=== PATIENT | female | born 1965 | race Caucasian/White ===

== ENCOUNTER → 2020-02-08 08:59 | Outpatient (BNVA) | payer OTHER, SELFPAY | PROVIDERS: PCP Internal Medicine; Referring Provider Internal Medicine; Visit Provider Orthopaedic Surgery | DX: M75.41 Impingement syndrome of right shoulder (principal) | CPT/HCPCS: 20610; 99212; J1100 ==

== ENCOUNTER 2020-02-19 11:55 | Outpatient (REF) | payer OTHER, SELFPAY ==
--- NOTE | 2020-02-19 11:57 | MR_ITS ---
EXAMINATION: MR SHOULDER WITHOUT CONTRAST, RIGHT CLINICAL INFORMATION: Impingement syndrome of right shoulder. Patient reports constant right shoulder pain, ? injured carrying grocery bags, PT of no help. COMPARISON: XR right shoulder 11/21/2019. TECHNIQUE: MRI of the shoulder without contrast was performed on a high-field scanner. FINDINGS: ROTATOR CUFF: There is distal supraspinatus tendinosis with minor fraying of the bursal surface. No discrete tear is identified. The infraspinatus, teres minor, and subscapularis tendons are intact. There is trace edema/fluid in the subacromial-subdeltoid bursa. No muscle atrophy or fatty infiltration. BICEPS: Normal. CORACOACROMIAL ARCH: The undersurface of the acromion is slightly curved with no subacromial spur. There is rspw-fa-rgkpwtdc osteoarthritis of the acromioclavicular joint. This includes moderate bone marrow edema in the distal clavicle. LABRUM/CAPSULE: Normal. GLENOHUMERAL JOINT/MARROW: The cartilage appears intact. There is mild spurring and patchy bone marrow edema involving the greater tuberosity. MR/MR shoulder RT wo con IMPRESSION: 1. Distal supraspinatus tendinosis with mild bursal surface fraying. No discrete tear. 2. Jmzi-yh-bvlplncc osteoarthritis of the acromioclavicular joint.
== END 2020-02-19 11:56 | disposition home or self-care (01) ==
LOC: HO.MRI 11:55
PROVIDERS: PCP Internal Medicine; Visit Provider Orthopaedic Surgery
DX: M75.41 Impingement syndrome of right shoulder (principal)
CPT/HCPCS: 73221

== ENCOUNTER → 2020-02-21 10:22 | Outpatient (BNVA) | payer OTHER, SELFPAY | PROVIDERS: PCP Internal Medicine; Referring Provider Internal Medicine; Visit Provider Orthopaedic Surgery | DX: M75.41 Impingement syndrome of right shoulder (principal); M19.011 Primary osteoarthritis, right shoulder | CPT/HCPCS: 99212 ==

== ENCOUNTER 2020-11-19 14:46 | Outpatient (REF) | payer OTHER, SELFPAY | END 2020-11-19 14:47 | disposition home or self-care (01) | LOC: HO.LAB 14:46 | PROVIDERS: Visit Provider Nurse Practitioner Family | DX: R30.0 Dysuria (principal) | CPT/HCPCS: 87086 ==

== ENCOUNTER 2020-12-10 | Outpatient (REF) | payer OTHER, SELFPAY ==
[2020-12-12 19:36] LABS: HPV mRNA E6/E7 rflx Not Detected (Not Detected)
== END 2020-12-10 00:01 | disposition home or self-care (01) ==
LOC: HO.LNP
PROVIDERS: Visit Provider Internal Medicine
DX: Z12.4 Encounter for screening for malignant neoplasm of cervix (principal); Z11.51 Encounter for screening for human papillomavirus (HPV)
CPT/HCPCS: 87624; 88142

== ENCOUNTER 2021-02-21 07:54 | Outpatient (REF) | payer OTHER, SELFPAY ==
[2021-02-21 11:17] LABS: Alanine Aminotransferase 24 U/L (0-31); Anion Gap 13 (12-20); Aspartate Amino Transferase 22 U/L (5-31); Blood Urea Nitrogen 11 mg/dL (9-16); Calcium 9.5 mg/dL (8.4-10.2); Carbon Dioxide 23 mmol/L (22-29); Chloride 110 mmol/L (96-108); Cholesterol 183 mg/dL; Estimated Glomerular Filt Rate > 60; Glucose Fasting 90 mg/dL (60-99); HDL Cholesterol 57 mg/dL; LDL Cholesterol Calculated 109 mg/dl; Potassium 4.4 mmol/L (3.3-5.1); Sodium 142 mmol/L (135-145); Triglycerides 88 mg/dL
[2021-02-21 11:38] LABS: Vitamin D 25-OH Total 14.9 ng/mL (>30)
== END 2021-02-21 07:55 | disposition home or self-care (01) ==
LOC: HO.HMGCLDS 07:54
PROVIDERS: PCP Internal Medicine; Visit Provider Internal Medicine
DX: Z00.00 Encounter for general adult medical examination without abnormal findings (principal); M19.91 Primary osteoarthritis, unspecified site; I10 Essential (primary) hypertension
CPT/HCPCS: 36415; 80048; 80061; 82306; 84450; 84460

== ENCOUNTER 2022-06-25 13:35 | Outpatient (REF) | payer OTHER, SELFPAY ==
--- NOTE | ~2022-06-25 | XR_ITS ---
EXAMINATION: CR X-RAY HAND AND WRIST LEFT CLINICAL INFORMATION: Left hand and wrist pain. COMPARISON: None TECHNIQUE: 3 views of the left hand and wrist were obtained. FINDINGS: There is no acute fracture or dislocation. The joint spaces are unremarkable. The carpal bones are normally aligned. The distal radius and ulna are intact. XR/XR hand wrist LT IMPRESSION: No acute cardiopulmonary process.
== END 2022-06-25 13:36 | disposition home or self-care (01) ==
LOC: HO.HMGCX 13:35
PROVIDERS: PCP Internal Medicine; Visit Provider Internal Medicine
DX: M19.90 Unspecified osteoarthritis, unspecified site (principal)
CPT/HCPCS: 73110; 73130

== ENCOUNTER → 2022-08-06 09:08 | Outpatient (BNVA) | payer OTHER, SELFPAY | PROVIDERS: PCP Internal Medicine; Visit Provider Physician Assistant | DX: M77.02 Medial epicondylitis, left elbow (principal); M65.4 Radial styloid tenosynovitis [de Quervain]; S69.80XA Other specified injuries of unspecified wrist, hand and finger(s), initial encounter | CPT/HCPCS: 99202 ==

== ENCOUNTER 2022-08-23 14:39 | Outpatient (REF) | payer OTHER, SELFPAY ==
[2022-08-25 23:33] LABS: HPV mRNA E6/E7 rflx Not Detected (Not Detected)
== END 2022-08-23 14:40 | disposition home or self-care (01) ==
LOC: HO.LNP 14:39
PROVIDERS: Visit Provider Internal Medicine
DX: Z01.419 Encounter for gynecological examination (general) (routine) without abnormal findings (principal); Z11.51 Encounter for screening for human papillomavirus (HPV)
CPT/HCPCS: 87624; 88142

== ENCOUNTER 2022-08-25 07:03 | Outpatient (REF) | payer OTHER, SELFPAY ==
[2022-08-25 11:31] LABS: MANUAL DIFF FLAG NO
[2022-08-25 11:41] LABS: Basophils Absolute Auto 0.1 X10*3/uL (0.0-0.2); Basophils Percent Auto 0.8 % (0-2); Eosinophils Absolute Auto 0.5 X10*3/uL (0.0-0.4); Hematocrit 42.3 % (37.0-47.0); Hemoglobin 13.7 g/dl (12.0-16.0); Imm Gran Abs Auto 0.01 X10*3/uL (0.00-0.03); Imm Gran Pct Auto 0.2 % (0.0-0.4); Lymphocytes Absolute Auto 3.2 X10*3/uL (1.2-4.9); Lymphocytes Percent Auto 53.5 % (20-40); Mean Corpuscular HGB Conc 32.4 g/dl (31.0-35.0); Mean Corpuscular Hemoglobin 27.3 pg (27.0-33.0); Mean Corpuscular Volume 84.3 fL (80.0-98.0); Mean Platelet Volume 10.4 fL (9.4-12.3); Monocytes Absolute Auto 0.5 X10*3/uL (0.1-1.2); Monocytes Percent Auto 7.5 % (2-11); Neutrophils Absolute Auto 1.8 x10*3/uL (2.0-8.3); Platelet Count 319 X10*3/uL (160-400); Red Blood Count 5.02 X10*6/uL (4.20-5.50); Red Cell Distribution Width 12.8 % (11.0-16.0)
[2022-08-25 12:28] LABS: Erythrocyte Sedimentation Rate 3 MM/HR (0-20)
[2022-08-25 12:48] LABS: Alanine Aminotransferase 12 U/L (0-31); Anion Gap 10 (12-20); Aspartate Amino Transferase 17 U/L (5-31); Blood Urea Nitrogen 11 mg/dL (9-16); Calcium 9.6 mg/dL (8.4-10.2); Carbon Dioxide 27 mmol/L (22-29); Chloride 110 mmol/L (96-108); Cholesterol 206 mg/dL; Estimated Glomerular Filt Rate > 60; Glucose Fasting 97 mg/dL (60-99); HDL Cholesterol 59 mg/dL; LDL Cholesterol Calculated 126 mg/dl; Potassium 4.2 mmol/L (3.3-5.1); Sodium 143 mmol/L (135-145); Triglycerides 105 mg/dL; Vitamin D 25-OH Total 23.9 ng/mL (>30)
[2022-08-25 18:30] LABS: Rheumatoid Factor < 13.0 IU/mL (<15.0)
[2022-08-27 17:12] LABS: CRP High Sensitivity 0.8 mg/L
[2022-09-01 11:59] LABS: Anti Nuclear Antibody Screen POSITIVE (NEGATIVE); Anti Nuclear Antibody Titer 1:40 titer
== END 2022-08-25 07:04 | disposition home or self-care (01) ==
LOC: HO.HMGCLDS 07:03
PROVIDERS: PCP Internal Medicine; Visit Provider Internal Medicine
DX: Z00.01 Encounter for general adult medical examination with abnormal findings (principal); E55.9 Vitamin D deficiency, unspecified; M19.90 Unspecified osteoarthritis, unspecified site; M25.50 Pain in unspecified joint
CPT/HCPCS: 36415; 80048; 80061; 82306; 84450; 84460; 85025; 85652; 86038; 86039; 86141; 86431

== ENCOUNTER 2022-12-15 08:44 | Outpatient (AMB) | payer OTHER, SELFPAY ==
--- NOTE | 2022-12-15 08:48 | MHC.OFFVIS ---
Intake Vital Signs 12/15/22 08:50 Weight 117 lb 11.629 oz BP 122/86 Blood Pressure Location Lt brachial Position Sitting Pulse 89 Pulse Source Pulse Oximeter Temp 98.1 F Temp Source Skin Pulse Oximetry (%) 99 Oxygen Delivery Method Room Air Intake Visit Reasons: Joint Pain Intake Note: New patient here for joint pain. Would like to discuss positive EVERETTE. 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 She says she has pain all over and has had that for a number of years. For the past 2 years or so she has noted some pain on the ulnar aspect of the left wrist. This seems to be worse with more physical activity. There is also pain in the left medial elbow and she has noted some bony enlargement across the interphalangeal joints. She is having hot flashes at night as she just stopped having her menses. She had chronic right shoulder pain that was helped with decompressive surgery back in 2020. [facility] Medical History (Updated 12/15/22 @ 14:13 by Ko Chi MD) Acromioclavicular joint arthritis EVERETTE positive Polyarthralgia Subacromial impingement of right shoulder Vitamin D deficiency Wrist pain, left Surgical History History of repair of right rotator cuff Surgical history unknown Family History Mother No problems noted. Father No problems noted. 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 She used to do more exercising but has cut that out. Slight weight loss. Negative for appetite change, fever, chills, malaise Eyes Details: Headaches a bit more frequent in recent months. Negative for vision change, dry eyes, and dizziness ENT Details: Negative for hearing change, tinnitus, oral ulcer, nose bleeds and oral dryness. Card Details: Negative chest pain, edema and syncope Resp Details: Negative for SOB, cough and wheezing GI Details: Negative indigestion/heartburn, nausea, abdominal pain, bowel changes, diarrhea, constipation and bloody stool. Details: Negative for dysuria, hematuria, nocturia, decreased force/flow and genital discharge Skin/Breast Details: Some hair thinning but no rashes on the scalp. Negative for itching, rash, hives, Raynaud's symptoms, sun sensitivity, and skin cancer Neuro Details: Negative for epilepsy, palsy, stroke, changes in speech, tingling and weakness Psych Details: Anxiety at times, frequent awakening in the middle of the night. Negative for depressive symptoms currently. Endo Details: Negative for polyuria and polydypsia Ghassan/Lymph Details: Negative for excessive bruising or bleeding. Physical Exam Vital Signs: Last Vital Signs Temp 98.1 F 12/15/22 08:50 Pulse 89 12/15/22 08:50 BP 122/86 12/15/22 08:50 Pulse Ox 99 12/15/22 08:50 Oxygen Delivery Method Room Air 12/15/22 08:50 APPEARANCE: Patient in no acute distress EYES no redness, pupils equal and reactive to light, eyelids normal. No temporal artery tenderness, redness or swelling. EARS: External ear normal, canal clear and tympanic membrane normal. NOSE/SINUS: Airflow through both nares, no nasal discharge, no bleeding THROAT: Oral mucosa moist, no ulcerations NECK: No thyromegaly or masses, no adenopathy, trachea midline. HEART: Regulrar rhythm, S1-S2 heard, no murmurs, rubs or gallops. LUNG: Clear to percussion and auscultation ABD: Normal bowel sounds, no organomegaly, masses or tenderness. EXTREMITIES: No edema, no calf tenderness, normal peripheral pulses. NEURO: Oriented and alert x3. No focal weakness. Reflexes symmetric. Gait normal. SKIN: No inflammatory or neoplastic lesions. Normal color and turgor JOINT EXAM:.?? Cervical Spine: Mild pain with extremes of lateral rotation and lateral flexion. Some cervical muscle tenderness. Thoracic Spine:.? No scoliosis.? No tenderness on palpation. Lumbar Spine:.? Alignment normal.? Mild lumbar pain at the extremes with some paraspinal muscle tenderness. Chest Wall:.? No tenderness, swelling, increased warmth or erythema. Hands:. Right: Normal pain-free range of motion. There is bony enlargement across the thumb IP in all the PIP joints but none of those are tender. There is mild do not bony enlargement at the 2nd and 5th DIP joints with there is some slight tenderness. No soft tissue swelling, triggering, thenar atrophy or sensory loss. Left:? Normal pain-free range of motion with slight bony enlargement without tenderness at the thumb IP and 2nd 3rd PIP joints. The 2nd DIP has some slight nontender bony enlargement. No soft tissue swelling, triggering, thenar atrophy or sensory loss. Wrists:. Right: Normal pain-free range of motion with some minimal dorsal tenderness. No swelling. Left: Mild pain with the extremes of 80 degrees flexion or extension. There is some slight dorsal tenderness but most of the tenderness is on the ulnar aspect. No redness or swelling is appreciated. Elbows: Left: Slight pain over the medial aspect with the extremes of normal range of motion. There is mild medial epicondylar tenderness. There is no swelling or redness in that area. There is no tenderness or swelling over the joint space. Right: Normal pain-free range of motion without tenderness, swelling, increased warmth or erythema. Shoulders:.?? Full range of motion without pain. No tenderness, weakness, swelling, increased warmth or erythema. Hips:.? Full range of motion without pain. Hip bursa:.? No tenderness. Knees:.?? Normal pain-free range of motion without tenderness, swelling, increased warmth or erythema.? There is no effusion or crepitation Ankles:.? Normal pain-free range of motion without tenderness, swelling, increased warmth or erythema. Feet:.? Normal pain-free range of motion without tenderness, swelling, increased warmth or erythema. Tender points: Mild tenderness to digital palpation at the occiput, trapezius, second rib, lateral epicondyle, knees, greater trochanter and gluteal area bilaterally. ? Results Reviewed Results Reviewed: Laboratory Tests 08/25/22 08/25/22 08/25/22 07:16 07:16 07:16 WBC 6.0 Hgb 13.7 Plt Count 319 ESR 3 Creatinine 0.63 AST 17 ALT 12 Laboratory Tests 08/25/22 08/25/22 07:16 07:16 Rheumatoid Factor < 13.0 EVERETTE Titer 1:40 H [facility] [place] [facility] [place] [address] XRay Report Signed Patient: Twyla Guy MR#: [id number] : 1965 :[id number] Age/Sex: 57 / F Date: 06/25/[address]: Emmanuel Alvarez MD Ordering Physician: Emmanuel Alvarez MD Date of Service: 06/25/22 Procedure(s): XR hand wrist LT Accession Number(s): [id number] cc: Emmanuel Alvarez MD~ EXAMINATION: CR X-RAY HAND AND WRIST LEFT CLINICAL INFORMATION: Left hand and wrist pain.? COMPARISON: None? TECHNIQUE: 3 views of the left hand and wrist were obtained.? FINDINGS: There is no acute fracture or dislocation. The joint spaces are unremarkable. The carpal bones are normally aligned. The distal radius and ulna are intact.? XR/XR hand wrist LT IMPRESSION: No acute cardiopulmonary process. ? Dictated By: Bart Dior MD Signed By: <Electronically signed by Bart Dior MD in OV> 06/25/[address] [address] Magnetic Resonance Report Signed Patient: Twyla Guy MR#: [id number] : 1965 Acct:[id number] Age/Sex: 55 / F ADM Date: 02/19/[address]: Og Little MD Ordering Physician: Og Little MD Date of Service: 02/19/20 Procedure(s): MR shoulder RT wo con Accession Number(s): [id number] cc: Og Little MD~ EXAMINATION: MR SHOULDER WITHOUT CONTRAST, RIGHT CLINICAL INFORMATION: Impingement syndrome of right shoulder. Patient reports constant right shoulder pain, ? injured carrying grocery bags, PT of no help. COMPARISON: XR right shoulder 11/21/2019. TECHNIQUE: MRI of the shoulder without contrast was performed on a high-field scanner. FINDINGS: ROTATOR CUFF: There is distal supraspinatus tendinosis with minor fraying of the bursal surface. No discrete tear is identified. The infraspinatus, teres minor, and subscapularis tendons are intact. There is trace edema/fluid in the subacromial-subdeltoid bursa. No muscle atrophy or fatty infiltration. BICEPS: Normal. CORACOACROMIAL ARCH: The undersurface of the acromion is slightly curved with no subacromial spur. There is wdyb-ab-sskoqwho osteoarthritis of the acromioclavicular joint. This includes moderate bone marrow edema in the distal clavicle. LABRUM/CAPSULE: Normal. GLENOHUMERAL JOINT/MARROW: The cartilage appears intact. There is mild spurring and patchy bone marrow edema involving the greater tuberosity. MR/MR shoulder RT wo con IMPRESSION: 1. Distal supraspinatus tendinosis with mild bursal surface fraying. No discrete tear. 2. Ewmj-to-efaxchnt osteoarthritis of the acromioclavicular joint. Dictated By: DEAN CASTILLO MD Assessment & Plan Assessment & Plan (1) EVERETTE positive: Code(s): R76.8 - Other specified abnormal immunological findings in serum (2) Flexor carpi ulnaris tendinitis: Code(s): M77.8 - Other enthesopathies, not elsewhere classified (3) Medial epicondylitis of left elbow: Code(s): M77.02 - Medial epicondylitis, left elbow (4) Osteoarthritis of hands, bilateral: Code(s): M19.041 - Primary osteoarthritis, right hand; M19.042 - Primary osteoarthritis, left hand Plan The patient has a positive EVERETTE but no clear signs of an active autoimmune or inflammatory arthritis. She has some tenderness over the left elbow consistent with medial epicondylitis. The left wrist tenderness suggest flexor carpi ulnaris tenosynovitis. Apparently MRI of the wrist is planned and that seems to be a reasonable idea to try to confirm that the wrist pain is from tendinitis. There also could be a ligament tear that we cannot see on x-ray or exam. I think she should follow-up with Orthopedics about that. She has few joints in the hands that seem to be presenting with mild osteoarthritis. She does have many tender points as well so probably does have some underlying fibromyalgia. She seems quite functional and I would jnot see the need for any other additional medication other than PRN use of acetaminophen or topical analgesics for her hands. I will look at other blood work to investigate the EVERETTE including anti double-stranded DNA antibody, anti HANNY antibody, chemistries, CBC and urine protein creatinine ratio. We will not schedule follow-up at this point unless the blood work suggest a greater possibility of auto-immune disease. Orders: Orders Comprehensive Met. Panel Today R76.8 - Other specified abnormal immunological findings in serum C Reactive Protein Today R76.8 - Other specified abnormal immunological findings in serum Protein Creatinine Ratio, Ur Today R76.8 - Other specified abnormal immunological findings in serum Complete Blood Count Auto Diff Today R76.8 - Other specified abnormal immunological findings in serum Erythrocyte Sedimentation Rate Today R76.8 - Other specified abnormal immunological findings in serum Anti DNA DS Antibody Today R76.8 - Other specified abnormal immunological findings in serum Anti Extractable Nuclear Ag Today R76.8 - Other specified abnormal immunological findings in serum Coding Level of Care Code New Pt Level 4 (22017) Diagnoses EVERETTE positive R76.8 Flexor carpi ulnaris tendinitis M77.8 Medial epicondylitis of left elbow M77.02 Osteoarthritis of hands, bilateral M19.041; M19.042
[2022-12-15 08:50] VITALS: BP 122/86; PULSE 89; TEMP 36.7; O2SAT 99
== END 2022-12-15 10:01 | disposition home or self-care (01) ==
PROVIDERS: PCP Internal Medicine; Visit Provider Internal Medicine Rheumatology
DX: R76.8 Other specified abnormal immunological findings in serum (principal); M77.8 Other enthesopathies, not elsewhere classified; M77.02 Medial epicondylitis, left elbow; M19.041 Primary osteoarthritis, right hand; M19.042 Primary osteoarthritis, left hand
CPT/HCPCS: 99204

== ENCOUNTER → 2022-12-15 08:44 | Outpatient (BNVA) | payer OTHER, SELFPAY | PROVIDERS: PCP Internal Medicine; Visit Provider Internal Medicine Rheumatology | DX: R76.8 Other specified abnormal immunological findings in serum (principal); M77.8 Other enthesopathies, not elsewhere classified; M77.02 Medial epicondylitis, left elbow; M19.041 Primary osteoarthritis, right hand; M19.042 Primary osteoarthritis, left hand | CPT/HCPCS: 99202 ==

== ENCOUNTER 2022-12-15 10:54 | Outpatient (REF) | payer OTHER, SELFPAY ==
[2022-12-15 13:32] LABS: MANUAL DIFF FLAG NO
[2022-12-15 13:48] LABS: Basophils Percent Auto 0.9 % (0-2); Eosinophils Absolute Auto 0.1 X10*3/uL (0.0-0.4); Eosinophils Percent Auto 2.4 % (0-4); Hematocrit 44.3 % (37.0-47.0); Hemoglobin 14.2 g/dl (12.0-16.0); Imm Gran Abs Auto 0.01 X10*3/uL (0.00-0.03); Imm Gran Pct Auto 0.2 % (0.0-0.4); Lymphocytes Percent Auto 42.8 % (20-40); Mean Corpuscular HGB Conc 32.1 g/dl (31.0-35.0); Mean Corpuscular Hemoglobin 27.1 pg (27.0-33.0); Mean Corpuscular Volume 84.5 fL (80.0-98.0); Mean Platelet Volume 10.8 fL (9.4-12.3); Monocytes Absolute Auto 0.3 X10*3/uL (0.1-1.2); Monocytes Percent Auto 6.8 % (2-11); Neutrophils Absolute Auto 2.1 x10*3/uL (2.0-8.3); Neutrophils Percent Auto 46.9 % (45-73); Platelet Count 355 X10*3/uL (160-400); Red Blood Count 5.24 X10*6/uL (4.20-5.50); Red Cell Distribution Width 12.9 % (11.0-16.0); White Blood Count 4.6 X10*3/uL (4.8-10.8)
[2022-12-15 14:14] LABS: Alanine Aminotransferase 13 U/L (0-31); Albumin Level 4.2 g/dL (3.5-5.0); Alkaline Phosphatase 82 U/L (39-117); Anion Gap 12 (12-20); Aspartate Amino Transferase 20 U/L (5-31); Bilirubin Total 0.3 mg/dL (0.0-1.0); Blood Urea Nitrogen 8 mg/dL (9-16); C Reactive Protein < 0.10 mg/dL (< or = 0.50); Carbon Dioxide 24 mmol/L (22-29); Chloride 109 mmol/L (96-108); Estimated Glomerular Filt Rate > 60; Glucose Random 97 mg/dL (60-115); Potassium 3.8 mmol/L (3.3-5.1); Sodium 141 mmol/L (135-145); Total Protein 7.6 g/dL (6.5-8.0)
[2022-12-15 14:23] LABS: Erythrocyte Sedimentation Rate 3 MM/HR (0-20)
[2022-12-15 15:12] LABS: Creatinine Urine 89.56 mg/dL; Total Protein Urine Random 9 mg/dL (<12)
[2022-12-16 13:33] LABS: Anti DNA DS Antibody <1 IU/mL; SM/Ribonucleoprotein Ab <1.0 NEG AI (<1.0 NEG); Smith Protein <1.0 NEG AI (<1.0 NEG)
== END 2022-12-15 10:55 | disposition home or self-care (01) ==
LOC: HO.HMGCLDS 10:54
PROVIDERS: PCP Internal Medicine; Visit Provider Internal Medicine Rheumatology
DX: R76.8 Other specified abnormal immunological findings in serum (principal); M77.8 Other enthesopathies, not elsewhere classified; M77.02 Medial epicondylitis, left elbow; M19.041 Primary osteoarthritis, right hand; M19.042 Primary osteoarthritis, left hand
CPT/HCPCS: 36415; 80053; 84156; 85025; 85652; 86140; 86225; 86235

== ENCOUNTER 2022-12-25 06:38 | Emergency (ER) | payer OTHER, SELFPAY ==
--- NOTE | ~2022-12-25 | XR_ITS ---
EXAMINATION: XR THORACOLUMBAR SPINE CLINICAL INFORMATION: Low back pain COMPARISON: None available. TECHNIQUE: 3 views FINDINGS: The vertebral alignment is normal. No intrinsic bony abnormality. The disc heights and neural foramina are well maintained. The endplates and posterior elements are normal. No fracture or subluxation. The surrounding prevertebral soft tissues are unremarkable. XR/XR thoracic spine 2V IMPRESSION: No compression fractures or subluxations are identified. The disc spaces are preserved. No endplate changes are seen. The prevertebral soft tissues are normal. The foramina are patent.
[2022-12-25 06:47] VITALS: PULSE 80; RESP 18; TEMP 36.8; O2SAT 96; BMI 22.5
--- NOTE | 2022-12-25 07:19 | PC.NURSE ---
pt a&ox3. respirations even and unlabored. pt reporting upper back pain for weeks which has got worse after pt lifted a gallon of water yesterday. pt reports tingling in the left upper arm. pt reports the pain worsens with movement. pt denies any issues with walking, pt is able to ambulate with steady gait. pt denies chest pain, nausea and vomiting.
--- NOTE | 2022-12-25 07:30 | ED_ITS ---
HPI - Back Pain/Injury General Chief Complaint: Back Pain/Injury Stated Complaint: Back pain Time Seen by Provider: 12/25/22 07:12 Source: patient Mode of arrival: ambulatory Limitations: no limitations History of Present Illness HPI Narrative: A 57-year-old female came in for evaluation of upper back pain after lifting a heavy bucket. A 57-year-old female with known history of back was to arthritis and chronic back pain that was aggravated after lifting a heavy bucket yesterday, no nausea, vomiting pain is in the upper back radiated up to the neck. Some numbness over the left scapular area. Related Data Home Medications Medication Instructions Recorded Confirmed trazodone 100 mg tablet 50 mg PO BEDTIME PRN sleep 10/23/22 12/15/22 Allergies Allergy/AdvReac Type Severity Reaction Status Date / Time No Known Allergies Allergy Verified 12/15/22 08:49 Review of Systems Review of Systems: All other systems are reviewed and are negative Constitutional: Reports as per HPI and Reports no additional constitutional complaints Eyes: Reports as per HPI and Reports no additional eye complaints Reports system reviewed and no additional complaints, except as documented Cardiovascular: Reports as per HPI and Reports no additional cardiovascular complaints Respiratory: Reports as per HPI and Reports no additional respiratory complaints Gastrointestinal: Reports as per HPI and Reports no additional gastrointestinal complaints Genitourinary: Reports no additional female genitourinary complaints Musculoskeletal: Reports no additional musculoskeletal complaints Skin/Breast: Reports system reviewed and no additional complaints, except as docu Psychiatric: Reports no additional psychiatric complaints Endocrine: Reports no additional endocrine complaints Hematologic/Lymphatic: Reports no additional hematologic/lymphatic complaints Allergic/Immunologic: Reports no additional allergic/immunologic complaints Reports system reviewed and no additional complaints, except as documented and Reports Abnormal speech present [facility] Past Medical History Medical History EVERETTE positive Polyarthralgia Wrist pain, left Vitamin D deficiency Acromioclavicular joint arthritis Subacromial impingement of right shoulder Surgical History History of repair of right rotator cuff Surgical history unknown Family History Family History Mother No problems noted. Father No problems noted. 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 Blood pressure normal. Heart rate normal. Respiration rate normal. Temperature normal. Oxygen saturation normal. Appearance: Alert. Oriented X3. No acute distress. Head: Normal external exam. Normocephalic. Atraumatic. No Barillas signs noted. No raccoon eyes noted Eyes: PERRLA. EOMI. Conjunctiva and sclera normal. Eyelids normal. ENT: TM's Normal. Pharynx normal. Uvula midline. Moist mucous membranes. No trismus noted. No drooling noted. No muffled voice noted. Neck: Normal inspection. Neck supple. FROM. No adenopathy. Thyroid Normal. No meningeal signs. No neck mass noted. CVS: Normal heart rate and rhythm. Heart sound normal. No murmurs noted. Pulses normal throughout. Respiratory: No respiratory distress. Painless inspiration. Breath sounds normal. No wheezes/rales/rhonchi noted. Chest nontender. No accessory muscle usage noted or decreased air movement noted. Abdomen: Soft and nontender. Bowel sounds normal in all 4 quadrants. No distention noted. No organomegaly noted. No visible injury noted. Back: No CVA tenderness. Mild tenderness over the thoracic spine with no step- off or deformity. Skin: Skin warm and dry. Normal skin color. Normal skin turgor. No rashes/lesions/lacerations noted. Extremities: No lower extremity edema. Extremities exhibit normal range of motion. Extremities nontender. Neuro: Oriented X 3. Cranial nerve exam: II-XII are grossly intact No motor deficit. No sensory deficit. Reflexes normal. Course Course Course Narrative: 57-year-old female with chronic back pain came in with exacerbation of acute back pain on chronic after lifting heavy bucket, normal neuro exam with no deformity x-ray showing diffuse DDD. Patient is just asking for bsuc-kwa-eovopje Tylenol to control her pain. Medications Administered Discontinued Medications Generic Name Dose Route Start Last Admin Trade Name Freq PRN Reason Stop Dose Admin Acetaminophen 650 mg 12/25/22 07:25 12/25/22 07:33 Acetaminophen 325 Mg Tablet PO 12/25/22 07:26 650 mg ONCE ONE Administration Medical Decision Making Differential Diagnosis Differential Diagnoses: The differential diagnosis associated with the presentation includes (Osteoarthritis, fracture, neurological deficit.) Admission/Observation Consideration of admission/observation: Escalation of care including admission/observation considered Independent Interpretation I performed an independent interpretation of an: Plain X-Ray (Thoracic spine: Diffuse degenerative disease.) Radiology Impression Discussion of test interpretation with radiology: I have reviewed the radiologist's reading. (No compression fractures or subluxations are identified. The disc spaces are preserved. No endplate changes are seen. The prevertebral soft tissues are normal. The foramina are patent. ) Discharge Plan Discharge Clinical Impression: Thoracic back pain Patient Disposition: Home, Self-Care Instructions: Thoracic Pain (ED) Additional Instructions: Rest, take Tylenol if needed for pain, heating pad, avoid heavy lifting, and follow-up with your PCP. Prescriptions: No Action trazodone 100 mg tablet 50 mg PO BEDTIME PRN (Reason: sleep) Referrals: Jolene Coley MD [Primary Care Provider] - Stand Alone Forms: Work/School Release
[2022-12-25] MEDS: Acetaminophen 325 MG TABLET 650 MG PO (07:33)
[2022-12-25 08:54] VITALS: BP 122/70; PULSE 82; RESP 18; O2SAT 97
== END 2022-12-25 09:25 | disposition home or self-care (01) ==
PROVIDERS: Emergency Provider Emergency Medicine; PCP Internal Medicine
DX: M54.6 Pain in thoracic spine (principal)
CPT/HCPCS: 72070; 99283; 99284

== ENCOUNTER 2023-03-08 12:31 | Emergency (ER) | payer OTHER, SELFPAY ==
--- NOTE | ~2023-03-08 | XR_ITS ---
EXAMINATION: XR KNEE, LEFT CLINICAL INFORMATION: Left knee pain COMPARISON: None available. TECHNIQUE: AP view, 2 oblique and 2 lateral views of the left knee. FINDINGS: Joint effusion present. Tiny posterior patellar osteophytes. Mild lateral joint space narrowing. XR/XR knee LT 3V IMPRESSION: Joint effusion. Minimal degenerative changes. Correlation with clinical exam recommended to determine further management. If there is concern for fracture or other underlying pathology, MRI could be obtained for further evaluation. This study was presented today March 08, 2023 at 2:49 PM for interpretation. Stat results provided at this time as requested by referring provider.
[2023-03-08 12:42] VITALS: BP 142/64; PULSE 88; RESP 16; TEMP 36.6; O2SAT 97; BMI 22.5
--- NOTE | 2023-03-08 12:44 | ED_ITS ---
HPI - Extremity Injury (Lower) General Chief Complaint: Extremity Injury, Lower Stated Complaint: L knee inj Time Seen by Provider: 03/08/23 14:21 Source: patient, RN notes reviewed and old records reviewed Mode of arrival: ambulatory History of Present Illness HPI Narrative: 58-year-old female with a past medical history of polyarthralgia, vitamin-D deficiency, presenting to the ED complaining of left knee pain and swelling s/p hitting knee on cement stair [employer]. Reports twisted knee then hit it, denies fall. Denies numbness, tingling, weakness, fever, head trauma or LOC MD complaint: knee injury Related Data Home Medications Medication Instructions Recorded Confirmed trazodone 100 mg tablet 50 mg PO BEDTIME PRN sleep 10/23/22 12/15/22 Previous Rx's Medication Instructions Recorded acetaminophen 500 mg tablet 500 mg PO Q6H PRN fever or pain 03/08/23 (Tylenol Extra Strength) #14 tabs naproxen 500 mg tablet 500 mg PO BID PRN pain 10 days #20 03/08/23 tabs Allergies Allergy/AdvReac Type Severity Reaction Status Date / Time No Known Allergies Allergy Verified 12/15/22 08:49 Review of Systems Review of Systems: Constitutional: No Fever, No Chills ENT/Mouth: No Ear Pain, No Nasal Congestion, No sore throat, No Rhinorrhea, No Swallowing Difficulty Cardiovascular: No Chest Pain, No SOB Respiratory: No Cough Musculoskeletal: + joint pain, No Myalgias, + Joint Swelling Skin: No Skin Lesions, No rash Neuro: No Weakness, No Numbness, No Paresthesias Yes all other systems are reviewed and are negative Constitutional: Constitutional: Reports as per [facility] Past Medical History Attestation statement: The following information was validated with the patient. Source: old records reviewed Medical History EVERETTE positive Polyarthralgia Wrist pain, left Vitamin D deficiency Acromioclavicular joint arthritis Subacromial impingement of right shoulder Surgical History History of repair of right rotator cuff Surgical history unknown Family History Family History Mother No problems noted. Father No problems noted. 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, [employer] Cognitive needs: No Hearing needs: No Vision needs: Yes Physical Exam Vital Signs: Vital Signs: Last Vital Signs Temp 97.8 F 03/08/23 12:42 Pulse 88 03/08/23 12:42 Resp 16 03/08/23 12:42 BP 142/64 H 03/08/23 12:42 Pulse Ox 97 03/08/23 12:42 O2 Del Method Room Air 03/08/23 12:42 BMI result Body Mass Index 22.5 Const: General: cooperative, healthy appearing and no acute distress Orientation/consciousness: patient oriented x3 Limitations: no limitations HEENT: Head: Yes normal to inspection and Yes atraumatic Ears: hearing grossly normal bilaterally General nose exam: Normal external nose present Face and sinus: Yes normal facial exam Eyes: General: appearance normal, both eyes and all related structures EOM: EOMs intact bilaterally Neck: Neck: Yes normal visual inspection and Yes no meningeal signs Resp: Effort & Inspection: normal respiratory effort and no respiratory distress Cardio: Rate: regular rate Skin: Rashes: no rashes Wounds: no wounds Neuro: General: patient oriented x3, tone normal and no meningeal signs Cranial nerves: Yes CN's II-XII intact bilaterally Gait exam (Neuro): Normal gait present Extrem: Other: Left knee with mild swelling > lateral aspect and diffuse tenderness to palpation. Flexion mildly limited secondary to pain. Neurovascularly intact distally. No laceration/erythema or warmth General: Yes normal to inspection Course Course Course Narrative: This is an RME: Additional HPI, ROS, PE not included below will be deferred to primary provider. This is a 58-year-old female, with no known medical problems, presenting to the emergency department with complaints of left knee pain status post fall which occurred today. Patient states that she twisted her knee and fell onto her left knee. Vital signs within normal limits. Tenderness palpation along the left lateral joint line, no abrasions noted. Did not hit her head or lose consciousness. Further your evaluation needed Plan: X-rays left knee appears XR knee LT 3V IMPRESSION: Joint effusion. Minimal degenerative changes. Correlation with clinical exam recommended to determine further management. If there is concern for fracture or other underlying pathology, MRI could be obtained for further evaluation. This study was presented today March 08, 2023 at 2:49 PM for interpretation. Stat results provided at this time as requested by referring provider. > Nima wrap applied for stability and compression Results discussed with patient including worrisome signs and symptoms and strict return precautions, and when to return to the emergency department. They verbalized understanding and feel safe for discharge at this time. Medical Decision Making Medical Decision Making MDM Narrative: 58-year-old female, with no known medical problems, presenting to the emergency department with complaints of left knee pain status post fall which occurred today. On exam vital signs stable, NAD, nontoxic appearing my physical exam as noted above. Concern for contusion vs sprain vs fracture. No evidence of septic joint/arthritis. Unlikely DVT Plan: X-rays Please refer to course for remaining clinical decision making, interpretation of labs/imaging results, and discussions with consultants and/or family members. Differential Diagnosis Differential Diagnoses: The differential diagnosis associated with the presentation includes As above Independent Interpretation I performed an independent interpretation of an: Plain X-Ray Radiology Impression Discussion of test interpretation with radiology: I have reviewed the r adiologist's reading. External Record Review External record reviewed: Inpatient record, Office record, Outpatient record, Prior outpatient labs, Prior outpatient radiology, Primary care record and Outside ED record Tests considered The following testing was considered but not selected: As above Prescription Management I considered prescription management with: Pain Medication Discharge Plan Discharge Clinical Impression: Effusion of knee joint Patient Disposition: Home, Self-Care Instructions: Swollen Knee Joint (ED) Additional Instructions: Your x-ray shows a joint effusion. No fracture. Please were Nima wrap for compression/debility Follow up with her doctor and Orthopedics as needed Naproxen as an anti-inflammatory/pain medication, take with food Rest, ice, elevate If symptoms persist or worsen or area begins look infected return to the ED Prescriptions: New acetaminophen [Tylenol Extra Strength] 500 mg tablet 500 mg PO Q6H PRN (Reason: fever or pain) Qty: 14 0RF naproxen 500 mg tablet 500 mg PO BID PRN (Reason: pain) 10 Days Qty: 20 0RF No Action trazodone 100 mg tablet 50 mg PO BEDTIME PRN (Reason: sleep) Referrals: [facility] [place] Orthopedic Surgeons [Provider Group] (as needed) Jolene Coley MD [Primary Care Provider] - Stand Alone Forms: Work/School Release Interventions: ED Discharge Assessment Last Done: 03/08/23 15:40 Discharge Date/Time: 03/08/23 15:40
== END 2023-03-08 15:40 | disposition home or self-care (01) ==
PROVIDERS: Emergency Provider Emergency Medicine Emergency Medical Services; PCP Internal Medicine
DX: M25.462 Effusion, left knee (principal); M25.562 Pain in left knee
CPT/HCPCS: 73562; 99282; 99283

== ENCOUNTER 2023-04-01 07:53 | Outpatient (REF) | payer OTHER, SELFPAY ==
--- NOTE | ~2023-04-01 | XR_ITS ---
EXAMINATION: XR KNEE AP STANDING ONE VIEW X-RAY OF LEFT KNEE. CLINICAL INFORMATION: Left knee pain COMPARISON: Left knee x-ray on 03/08/2023 TECHNIQUE: AP bilateral standing view of the knees was obtained. FINDINGS: BONES: Bony structures are intact. There is no focal bone destruction or periosteal reaction seen. JOINTS: Alignment of joints is normal. SOFT TISSUE: Soft tissue is normal. No radiopaque foreign body or abnormal air collection is seen. XR/XR knee standing BI IMPRESSION: 1. Unchanged Normal x-rays of left knee. 2. Normal frontal x-ray of right knee. 3. No fracture or dislocation or signs of osteomyelitis are found.
--- NOTE | ~2023-04-01 | XR_ITS ---
EXAMINATION: XR KNEE AP STANDING ONE VIEW X-RAY OF LEFT KNEE. CLINICAL INFORMATION: Left knee pain COMPARISON: Left knee x-ray on 03/08/2023 TECHNIQUE: AP bilateral standing view of the knees was obtained. FINDINGS: BONES: Bony structures are intact. There is no focal bone destruction or periosteal reaction seen. JOINTS: Alignment of joints is normal. SOFT TISSUE: Soft tissue is normal. No radiopaque foreign body or abnormal air collection is seen. XR/XR knee LT 1V IMPRESSION: 1. Unchanged Normal x-rays of left knee. 2. Normal frontal x-ray of right knee. 3. No fracture or dislocation or signs of osteomyelitis are found.
== END 2023-04-01 07:54 | disposition home or self-care (01) ==
LOC: HO.HOSX 07:53
PROVIDERS: Visit Provider Physician Assistant
DX: M25.561 Pain in right knee (principal); M25.562 Pain in left knee
CPT/HCPCS: 73560; 73565; 99212

== ENCOUNTER 2023-04-01 09:19 | Outpatient (AMB) | payer OTHER, SELFPAY ==
--- NOTE | 2023-04-01 09:31 | A.OFFVIS_ITS ---
Intake Vital Signs 04/01/23 09:34 Height 5 ft Weight 115 lb BMI 22.5 Intake Visit Reasons: OV ER follow up left knee injury Intake Note: [place] 58 year old female presents today for an ER follow up of left knee injury, DOI --. Patient reports that she fell hitting her knee on cement stairs. Currently denies pain however states constant ache. She has swelling that gets worse at the end of a work day. No previous. Finds naproxen is not helping with her swelling. Allergies No Known Allergies Allergy (Verified 04/01/23 09:36) HPI OV ER follow up left knee injury HPI Details 58-year-old female who presents to the [facility] today for an ER follow-up of left knee injury s/p fall and hitting her knee on cement stairs. She currently denies any pain but she states she has constant ache in her knee which is aggravated at night and reports she cries her to sleep. She also c/o swelling which is aggravated with at the end of a work day. She has not had any previous treatment. She finds no relief with naproxen for her swelling. [facility] Medical History EVERETTE positive Polyarthralgia Wrist pain, left Vitamin D deficiency Acromioclavicular joint arthritis Subacromial impingement of right shoulder Surgical History History of repair of right rotator cuff Surgical history unknown Family History Mother No problems noted. Father No problems noted. 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 Retropatellar tenderness present. Full ROM with crepitus. Negative Kim?s. No ligamentous laxity. NVI. Results Reviewed Results Reviewed: Xrays were obtained in the office today and personally reviewed by me of the left knee show mild pf oa Assessment & Plan Assessment & Plan (1) Patellofemoral arthritis of left knee: Code(s): M17.12 - Unilateral primary osteoarthritis, left knee Plan She will continue with activities modification and symptomatic treatment. I did send a prescription of Celebrex to take twice a day for 2 weeks. If symptoms persist or worsens, patient will contact the office for an injection, otherwise follow-up as needed. Orders: Orders XR knee standing BI Today M25.561 - Pain in right knee, M25.562 - Pain in left knee XR knee LT 1V Today M25.562 - Pain in left knee Medications: New celecoxib (Celebrex) 200 mg PO BID 60 caps 3RF 30 days Patient Instructions: Scribed for Joseph Shaw PA-C, by Mason Hernández regional medical director, on 04/01/2023 at 9:30 AM LAURA. Joseph Bunch PA-C, have personally reviewed and agree with the information entered by the scribe. Coding Level of Care Code New Pt Level 3 (44020) Diagnoses Patellofemoral arthritis of left knee M17.12
[2023-04-01 09:34] VITALS: BMI 22.5
== END 2023-04-01 10:07 | disposition home or self-care (01) ==
PROVIDERS: PCP Internal Medicine; Visit Provider Physician Assistant
DX: M17.12 Unilateral primary osteoarthritis, left knee (principal); M25.561 Pain in right knee
CPT/HCPCS: 99213